=== PATIENT | female | born 1995 | race Caucasian/White ===

== ENCOUNTER 2017-06-18 20:54 | Emergency (ER) | payer OTHER ==
[~2017-06-18] VITALS: Ht 165.1 cm; Wt 54.9 kg
[2017-06-19] MEDS ORDERED: KETO10TA2 PO (02:22)
[2017-06-19] MEDS ORDERED: CEFUROXIME500 MG PO (02:22)
[2017-06-19] MEDS ORDERED: URIN D.S. TABL1 EACH PO (02:22)
== END 2017-06-19 02:19 | disposition home or self-care (01) ==
LOC: ER 20:54
DX: N39.0 Urinary tract infection, site not specified (principal); R10.31 Right lower quadrant pain

== ENCOUNTER 2020-11-08 09:23 | Emergency (ER) | payer OTHER ==
[~2020-11-08] VITALS: Ht 162.6 cm; Wt 61.2 kg
[~2020-11-08 09:23] MED LIST: CEFUROXIME500 MG PO; KETO10TA2 PO; URIN D.S. TABL1 EACH PO
[2020-11-08] MEDS ORDERED: DICLOFENAC POTA50 MG PO (16:49)
[2020-11-08] MEDS ORDERED: ULTRAM50 MG PO (16:49)
== END 2020-11-08 17:43 ==
LOC: ER 09:23
DX: R10.31 Right lower quadrant pain (principal); Z03.818 Encounter for observation for suspected exposure to other biological agents ruled out

== ENCOUNTER 2021-10-25 10:40 | Outpatient (CLI) | payer OTHER ==
[~2021-10-25 10:40] MED LIST changes: +DICLOFENAC POTA50 MG PO; +ULTRAM50 MG PO
== END 2021-10-25 10:43 | disposition home or self-care (01) ==
LOC: RAD 10:40
PROVIDERS: ATTEND Chiropractor
DX: M25.561 Pain in right knee (principal)